=== PATIENT | male | born 1985 | race Caucasian/White ===

== ENCOUNTER 2016-07-05 15:40 | Emergency (ER) | payer SELFPAY ==
[2016-07-05] MEDS ORDERED: Fluorescein Opthalmic Strip ONE (16:08)
[2016-07-05] MEDS ORDERED: Tetracaine HCl 0.5% Ophth Soln 2 ML Bottle ONE (16:09)
--- NOTE | 2016-07-05 17:05 | ERRECORD ---
[facility]Y RECORD HPI EYE COMPLAINT (Sat Jul 06, 2016 00:50 JOHE) CHIEF COMPLAINT: Patient presents for evaluation of injury, to the right eye, Patient presents for evaluation of pain, to the right eye, Patient presents for evaluation of redness, to the right eye. HISTORIAN: History provided by patient, Pt. clearing away luly bushes, and got poked in the eye with one of the branches/thorns. Patient reports mild pain at the time of injury, which worsened after he irrigated his eye in the shower. Patient reports redness and tearing, with foreign body sensation. States vision normal. No other eye trauma, no grinding, hammering or welding. Did not get anything else in eyes, no contact lens or glasses use. MECHANISM OF INJURY: Foreign Body, foreign body suspected to be wooden. LOCATION: Symptoms are localized, most severe in the right eye, Radiation is not present. QUALITY: Pain is sharp in nature, described as stabbing. SEVERITY: Maximum severity of symptoms moderate, Currently symptoms are moderate. TIME COURSE: Sudden onset of symptoms, 4, hours prior to arrival, There has been no change in the patient's symptoms over time, are constant. ASSOCIATED WITH: No associated contact use, No associated crusting, No associated discharge, No associated facial pain, No associated fever, Associated with foreign body sensation, No associated glasses use, No associated headache, No associated nausea, Associated with tearing, No associated upper respiratory infection, No associated vomiting, No associated weakness, No associated blurred vision, No glaucoma signs or symptoms, Denies any other complaints. EXACERBATED BY: Patient's condition exacerbated by eye opening. RELIEVED BY: Nothing tried for relief. ROS (Sat Jul 06, 2016 00:53 JOHE) CONSTITUTIONAL: Historian denies chills, denies fatigue, denies fever. EYES: Historian reports eye pain, reports eye redness, denies eye discharge, denies itching, denies photophobia, reports tearing, denies vision changes. Patient does not wear glasses. ENT: Historian reports drooling, denies otalgia, denies rhinorrhea, denies sinus pain, denies sore throat. CARDIOVASCULAR: Historian denies chest pain, denies syncope, denies palpitations. RESPIRATORY: Historian denies cough, denies shortness of breath, denies wheezing. GI: Historian denies abdominal pain, denies nausea, denies &a-1R&a+25V*p+0X*w1235L*c202B*c15G*c2P*p-0X&a-25V&a+1R Name: Froy Cervantes : 1985 M31 MedRec: [id number] AcctNum: [id number] Prepared: Sat Jul 06, 2016 01:01 by Interface Page 1 of 4 pMD [facility] EMERGENCY RECORD vomiting. SKIN: Historian denies rash, denies skin changes, denies skin lesions. NEUROLOGIC: Historian denies dizziness, denies focal weakness, denies gait changes, denies seizures. HEMO/LYMPHATIC: Historian denies adenopathy. NOTES: All systems reviewed, negative except as described above. PAST MEDICAL HISTORY (16:01 [facility]) MEDICAL HISTORY: No past medical history, Flu vaccine not up to date, Tetanus immunization up to date, Pneumococcal vaccine not up to date, Notes: seasonal allergies. MALE SURGICAL HISTORY: Surgical history of appendectomy, Surgical history of orthopedic surgery, left forearm orif. PSYCHIATRIC HISTORY: Notes: NONE. SOCIAL HISTORY: Patient denies alcohol use, Patient denies drug use, Patient currently uses tobacco, smokes cigarettes, Patient smokes 1 pack per day. KNOWN ALLERGIES No Known Drug Allergies CURRENT MEDICATIONS (15:59 [facility]) None VITAL SIGNS VITAL SIGNS: BP: 139/73, Pulse: 107, Resp: 19, Temp: 98.8 (Oral), Pain: 6, O2 sat: 96, Time: 07/05/2016 15:59. (15:59 [facility]) Resp: 17, Pain: 0, Time: 07/05/2016 16:45. (16:45 BDON) PHYSICAL EXAM (Sat Jul 06, 2016 00:54 JOHE) CONSTITUTIONAL: Vital Signs Reviewed, Patient appears non toxic, Patient alert and oriented to person, place and time. HEAD: Head exam normal, Head exam included findings of head atraumatic, normocephalic, no raccoon eyes. EYES: Eye exam included findings of eyelids normal to inspection, Pupils equally round and reactive to light, Extraocular muscles intact, Fundoscopic exam normal, Eye exam included findings of anterior chamber clear, no nystagmus, Visual acuity:, Left eye: 20/30, Right eye: 20/40, PERRLA, EOMI, nondilated funduscopic exam unremarkable. No FBs seen in the right eye or lids, even with eyelid eversion. Fluorscein staining shows a corneal abrasion over the mid-cornea, no Wen sign. Globes bilaterally appear equal and symmetric, no proptosis or sunken globe. + right eye conjunctival injection. No periorbital swelling or erythema. ENT: ENT exam normal, Ear exam normal, external ear normal, tympanic membranes normal, no foreign body, no drainage, no bleeding, hearing normal, Nose exam normal, no nasal deformity, no bleeding from nares, no bleeding from hypopharynx, no foreign body visualized, no septal hematoma, no septal necrosis, No turbinate mucosa &a-1R&a+25V*p+0X*j0720I*c202B*c15G*c2P*p-0X&a-25V&a+1R Name: Froy Cervantes : 1985 M31 MedRec: [id number] AcctNum: [id number] Prepared: Sat Jul 06, 2016 01:01 by Interface Page 2 of 4 pMD [facility] EMERGENCY RECORD discharge, Pharynx exam normal, not injected, no swelling, symmetrical, Tonsil exam normal, not enlarged, no exudates, Mouth exam normal, mucous membranes moist, no drooling, no lesions, no lacerations, no tongue elevation, Sinus exam included findings of frontal sinuses normal, maxillary sinuses normal. NECK: Neck exam normal, Neck exam included findings of normal range of motion, Trachea midline, no cervical adenopathy. RESPIRATORY CHEST: Respiratory and chest exam normal, Respiratory exam included findings of no respiratory distress, Breath sounds clear, No wheezing, No rales, No rhonchi, Breath sounds not absent, Breath sounds not diminished. CARDIOVASCULAR: Cardiovascular assessment normal, Cardiovascular exam included findings of heart rate regular rate and rhythm, Heart sounds normal. NEURO: Neuro exam normal, [place] coma scale 15, Neuro exam findings include patient oriented to person, place and time, Speech normal, Gait normal. SKIN: Skin exam normal, Skin exam included findings of skin warm, dry, and normal in color, no rash. MEDICATION ADMINISTRATION SUMMARY Drug Name: Ful-Vida, Dose Ordered: 1 dustin, Route: Eye Right, Status: Given, Time: 16:25 07/05/2016, Drug Name: proparacaine, Dose Ordered: 1 Drps, Route: Eye Right, Status: Given, Time: 16:14 07/05/2016, Detailed record available in Medication Service section. DOCTOR NOTES (Sat Jul 06, 2016 00:57 JOHE) TEXT: Note - Chart completed after patient discharge. Discussed treatment, need for close outpatient f/u, and warning signs for immediate return to ED. Discussed with patient that he has evidence of corneal abrasion without signs of globe injury. However, offered CT scan if patient feels thorn penetrated the eye. Patient says he does not think so, and refuses imaging at this time. Discussed treatment for corneal abrasion, need for ophthalmology f/u tomorrow if not improved significantly, and discussed warning signs for when to return to ED. PROBLEM LIST No recorded problems DIAGNOSIS (16:32 JOHE) FINAL: PRIMARY: corneal abrasion of right eye. PRESCRIPTION erythromycin ophthalmic: OINTMENT (GRAM) : 5 mg/gram (0.5 %) : OPHTHALMIC : Quantity: 0.5 Unit: inch Route: OPHTHALMIC Schedule: 4 times a day Dispense: 1 Unit: Tube May substitute. Refills: No Refills . (16:33 JOHE) &a-1R&a+25V*p+0X*b5944S*c202B*c15G*c2P*p-0X&a-25V&a+1R Name: Froy Cervantes : 1985 M31 MedRec: [id number] AcctNum: [id number] Prepared: Sat Jul 06, 2016 01:01 by Interface Page 3 of 4 pMD [facility] EMERGENCY RECORD NOTES: Apply a small amount to the right eye 4 times daily or as directed by ophthalmology. No Refills. (16:33 JOHE) Acular: DROPS : 0.5 % : OPHTHALMIC : Quantity: 1 Unit: Drps Route: OPHTHALMIC Schedule: every 6 hours PRN Dispense: 1 May substitute. Refills: No Refills . (16:35 JOHE) NOTES: ketorolac ophthalmic 0.5% No Refills. (16:35 JOHE) acetaminophen-codeine: CAPSULE : 325 mg-60 mg : ORAL : Quantity: 1 Unit: tab(s) Route: ORAL Schedule: Dispense: 15 Unit: tab(s) May substitute. Refills: No Refills . (16:35 JOHE) NOTES: No Refills. (16:35 JOHE) DISPOSITION PATIENT: Disposition Type: Discharge, Disposition: *Discharge Home from Observation Unit, Condition: Good. (16:32 JOHE) Patient left the department. (16:56 BDON) Disposition: *Discharge Home. (16:58 BDON) Apul: KRISTIE=SHIRLEY Tejada, Caitie MORRIS=MD Claudia, Jaycob [facility]=SHIRLEY Rg, Pari &a-1R&a+25V*p+0X*d7664P*c202B*c15G*c2P*p-0X&a-25V&a+1R Name: Froy Cervantes : 1985 M31 MedRec: [id number] AcctNum: [id number] Prepared: Dheeraj Jul 06, 2016 01:01 by Interface Page 4 of 4 pMD MTDD
--- NOTE | 2016-07-05 17:09 | PICIS ---
[facility] EMERGENCY RECORD TRIAGE (15:59 [facility]) TRIAGE NOTES: Cleaning a fence and possible foreign body (a briar / thorn vein) hit eye. 4 hours ago. (15:59 [facility]) PATIENT: NAME: Froy Cervantes, AGE: 31, GENDER: male, : Fri1985, TIME OF GREET: FriJul 05, 2016 15:40, PREFERRED LANGUAGE: Slovenian, ETHNICITY: Not or , ECODE BILLING MAP: [facility], SSN: [id number], Zip Code: [address], KG WEIGHT: 107.50, PHONE: , , , PERSON ID: [id number], PCP: Bg Allen /Kim. (15:59 [facility]) COMPLAINT: RIGHT EYE IRRITATION. (15:59 [facility]) ADMISSION: URGENCY: 4 Non Urgent, ADMISSION SOURCE: Home, TRANSPORT: Walk-in, BED: TRIAGE. (15:59 [facility]) ASSESSMENT: Assessment: Possible foreign body right eye from thorn campos which hit him, Symptoms began 4 hours ago. (16:01 [facility]) TREATMENTS IN PROGRESS: Treatments given Prehospital: none. (16:01 [facility]) PROVIDERS: TRIAGE NURSE: Pari Rg RN. (15:59 [facility]) VITAL SIGNS: BP 139/73, Pulse 107, Resp 19, Temp 98.8, (Oral), Pain 6, O2 Sat 96, Time 07/05/2016 15:59. (15:59 [facility]) PREVIOUS VISIT ALLERGIES: No Known Drug Allergies. (15:59 [facility]) No Known Drug Allergies. (16:01 [facility]) KNOWN ALLERGIES No Known Drug Allergies CURRENT MEDICATIONS (15:59 [facility]) None VITAL SIGNS VITAL SIGNS: BP: 139/73, Pulse: 107, Resp: 19, Temp: 98.8 (Oral), Pain: 6, O2 sat: 96, Time: 07/05/2016 15:59. (15:59 [facility]) Resp: 17, Pain: 0, Time: 07/05/2016 16:45. (16:45 BDON) NURSING ASSESSMENT: EYE (16:00 BDON) CONSTITUTIONAL: Patient arrives ambulatory, Gait steady, History obtained from patient, Patient appears, Patient cooperative, Patient alert, Oriented to person, place and time, Skin warm, Skin dry, Skin normal in color, Patient is well-groomed. PAIN: Right eye. EYES: Conjunctiva, with hemorrhage on the right, Visual acuity performed, Left eye: 20/30, Right eye: 20/90, Both eyes: 20/25. SAFETY: Cart/Stretcher in lowest position, Family at bedside, Hospital ID band on, Patient in view of the nursing station. NURSING PROCEDURE: DISCHARGE NOTE (16:45 BDON) DISCHARGE: Patient discharged to home, ambulating without assistance, Summary of Care printed/ provided, Patient requested and was provided an electronic copy of Discharge Instructions, Transition &a-1R&a+25V*p+0X*c0713F*c202B*c15G*c2P*p-0X&a-25V&a+1R Name: Froy Cervantes : 1985 M31 MedRec: [id number] AcctNum: [id number] Prepared: Sat Jul 06, 2016 01:07 by Interface Page 1 of 6 pMD [facility] EMERGENCY RECORD record given to patient, Discharge instructions given to patient, Simple or moderate discharge teaching performed, Prescriptions given and instructions on side effects given, Medication reconciliation form given, Above person(s) verbalized understanding of discharge instructions and follow-up care, Patient treated and evaluated by physician. VITAL SIGNS: Resp: 17, Pain: 0. MEDICATION ADMINISTRATION SUMMARY Drug Name: Ful-Vida, Dose Ordered: 1 dustin, Route: Eye Right, Status: Given, Time: 16:25 07/05/2016, Drug Name: proparacaine, Dose Ordered: 1 Drps, Route: Eye Right, Status: Given, Time: 16:14 07/05/2016, Detailed record available in Medication Service section. MEDICATION SERVICE Ful-Vida: Order: Ful-Vida (fluorescein sodium) - Dose: 1 dustin : Eye Right Schedule: Now Ordered by: Jaycob Taylor MD Entered by: Jaycob Taylor MD FriJul 05, 2016 16:03 Documented as given by: Caitie Tejada RN FriJul 05, 2016 16:25 Patient, Medication, Dose, Route and Time verified prior to administration. Site: Medication administered on the right side, Dr. Taylor applied. proparacaine: Order: proparacaine (proparacaine HCl) - Dose: 1 Drps : Eye Right Schedule: Now Ordered by: Jaycob Taylor MD Entered by: Jaycob Taylor MD FriJul 05, 2016 16:03 Documented as given by: Caitie Tejada RN FriJul 05, 2016 16:14 Patient, Medication, Dose, Route and Time verified prior to administration. Site: Medication administered on the right side, Correct patient, time, route, dose and medication confirmed prior to administration, Patient advised of actions and side-effects prior to administration, Allergies confirmed and medications reviewed prior to administration, Advised not to ambulate without assistance, Patient in position of comfort, Cart in lowest position, Family at bedside. HPI EYE COMPLAINT (Sat Jul 06, 2016 00:50 JOHE) CHIEF COMPLAINT: Patient presents for evaluation of injury, to the right eye, Patient presents for evaluation of pain, to the right eye, Patient presents for evaluation of redness, to the right eye. HISTORIAN: History provided by patient, Pt. clearing away luly bushes, and got poked in the eye with one of the branches/thorns. Patient reports mild pain at the time of injury, which worsened after he irrigated his eye in the shower. Patient &a-1R&a+25V*p+0X*t0160P*c202B*c15G*c2P*p-0X&a-25V&a+1R Name: Froy Cervantes : 1985 M31 MedRec: [id number] AcctNum: [id number] Prepared: Sat Jul 06, 2016 01:07 by Interface Page 2 of 6 pMD [facility] EMERGENCY RECORD reports redness and tearing, with foreign body sensation. States vision normal. No other eye trauma, no grinding, hammering or welding. Did not get anything else in eyes, no contact lens or glasses use. MECHANISM OF INJURY: Foreign Body, foreign body suspected to be wooden. LOCATION: Symptoms are localized, most severe in the right eye, Radiation is not present. QUALITY: Pain is sharp in nature, described as stabbing. SEVERITY: Maximum severity of symptoms moderate, Currently symptoms are moderate. TIME COURSE: Sudden onset of symptoms, 4, hours prior to arrival, There has been no change in the patient's symptoms over time, are constant. ASSOCIATED WITH: No associated contact use, No associated crusting, No associated discharge, No associated facial pain, No associated fever, Associated with foreign body sensation, No associated glasses use, No associated headache, No associated nausea, Associated with tearing, No associated upper respiratory infection, No associated vomiting, No associated weakness, No associated blurred vision, No glaucoma signs or symptoms, Denies any other complaints. EXACERBATED BY: Patient's condition exacerbated by eye opening. RELIEVED BY: Nothing tried for relief. ROS (Sat Jul 06, 2016 00:53 JOHE) CONSTITUTIONAL: Historian denies chills, denies fatigue, denies fever. EYES: Historian reports eye pain, reports eye redness, denies eye discharge, denies itching, denies photophobia, reports tearing, denies vision changes. Patient does not wear glasses. ENT: Historian reports drooling, denies otalgia, denies rhinorrhea, denies sinus pain, denies sore throat. CARDIOVASCULAR: Historian denies chest pain, denies syncope, denies palpitations. RESPIRATORY: Historian denies cough, denies shortness of breath, denies wheezing. GI: Historian denies abdominal pain, denies nausea, denies vomiting. SKIN: Historian denies rash, denies skin changes, denies skin lesions. NEUROLOGIC: Historian denies dizziness, denies focal weakness, denies gait changes, denies seizures. HEMO/LYMPHATIC: Historian denies adenopathy. NOTES: All systems reviewed, negative except as described above. PAST MEDICAL HISTORY (16:01 [facility]) &a-1R&a+25V*p+0X*w0570C*c202B*c15G*c2P*p-0X&a-25V&a+1R Name: Froy Cervantes : 1985 M31 MedRec: [id number] AcctNum: [id number] Prepared: Sat Jul 06, 2016 01:07 by Interface Page 3 of 6 pMD [facility] EMERGENCY RECORD MEDICAL HISTORY: No past medical history, Flu vaccine not up to date, Tetanus immunization up to date, Pneumococcal vaccine not up to date, Notes: seasonal allergies. MALE SURGICAL HISTORY: Surgical history of appendectomy, Surgical history of orthopedic surgery, left forearm orif. PSYCHIATRIC HISTORY: Notes: NONE. SOCIAL HISTORY: Patient denies alcohol use, Patient denies drug use, Patient currently uses tobacco, smokes cigarettes, Patient smokes 1 pack per day. PHYSICAL EXAM (Sat Jul 06, 2016 00:54 JOHE) CONSTITUTIONAL: Vital Signs Reviewed, Patient appears non toxic, Patient alert and oriented to person, place and time. HEAD: Head exam normal, Head exam included findings of head atraumatic, normocephalic, no raccoon eyes. EYES: Eye exam included findings of eyelids normal to inspection, Pupils equally round and reactive to light, Extraocular muscles intact, Fundoscopic exam normal, Eye exam included findings of anterior chamber clear, no nystagmus, Visual acuity:, Left eye: 20/30, Right eye: 20/40, PERRLA, EOMI, nondilated funduscopic exam unremarkable. No FBs seen in the right eye or lids, even with eyelid eversion. Fluorscein staining shows a corneal abrasion over the mid-cornea, no Wen sign. Globes bilaterally appear equal and symmetric, no proptosis or sunken globe. + right eye conjunctival injection. No periorbital swelling or erythema. ENT: ENT exam normal, Ear exam normal, external ear normal, tympanic membranes normal, no foreign body, no drainage, no bleeding, hearing normal, Nose exam normal, no nasal deformity, no bleeding from nares, no bleeding from hypopharynx, no foreign body visualized, no septal hematoma, no septal necrosis, No turbinate mucosa discharge, Pharynx exam normal, not injected, no swelling, symmetrical, Tonsil exam normal, not enlarged, no exudates, Mouth exam normal, mucous membranes moist, no drooling, no lesions, no lacerations, no tongue elevation, Sinus exam included findings of frontal sinuses normal, maxillary sinuses normal. NECK: Neck exam normal, Neck exam included findings of normal range of motion, Trachea midline, no cervical adenopathy. RESPIRATORY CHEST: Respiratory and chest exam normal, Respiratory exam included findings of no respiratory distress, Breath sounds clear, No wheezing, No rales, No rhonchi, Breath sounds not absent, Breath sounds not diminished. CARDIOVASCULAR: Cardiovascular assessment normal, Cardiovascular exam included findings of heart rate regular rate and rhythm, Heart sounds normal. NEURO: Neuro exam normal, [place] coma scale 15, Neuro exam findings include patient oriented to person, place and time, Speech normal, Gait normal. SKIN: Skin exam normal, Skin exam included findings of skin warm, dry, and normal in color, no rash. &a-1R&a+25V*p+0X*v5660U*c202B*c15G*c2P*p-0X&a-25V&a+1R Name: Froy Cervantes : 1985 M31 MedRec: [id number] AcctNum: [id number] Prepared: Sat Jul 06, 2016 01:07 by Interface Page 4 of 6 pMD [facility] EMERGENCY RECORD EVENTS TRANSFER: Triage to Emergency Triage. (FriJul 05, 2016 15:59 [facility]) Emergency Triage to Emergency Room -05. (16:05 BDON) Removed from Emergency Emergency Room -05. (16:56 BDON) DOCTOR NOTES (Sat Jul 06, 2016 00:57 JOHE) TEXT: Note - Chart completed after patient discharge. Discussed treatment, need for close outpatient f/u, and warning signs for immediate return to ED. Discussed with patient that he has evidence of corneal abrasion without signs of globe injury. However, offered CT scan if patient feels thorn penetrated the eye. Patient says he does not think so, and refuses imaging at this time. Discussed treatment for corneal abrasion, need for ophthalmology f/u tomorrow if not improved significantly, and discussed warning signs for when to return to ED. PROBLEM LIST No recorded problems DIAGNOSIS (16:32 JOHE) FINAL: PRIMARY: corneal abrasion of right eye. DISPOSITION PATIENT: Disposition Type: Discharge, Disposition: *Discharge Home from Observation Unit, Condition: Good. (16:32 JOHE) Patient left the department. (16:56 BDON) Disposition: *Discharge Home. (16:58 BDON) INSTRUCTION (16:36 JOHE) DISCHARGE: CORNEAL ABRASION. FOLLOWUP: [facility], /[facility], [address] [place] [address], , [place], Ophthalmology, [address] [place] [place] [address], [phone], Follow up with Specialist in 1 day. PRESCRIPTION erythromycin ophthalmic: OINTMENT (GRAM) : 5 mg/gram (0.5 %) : OPHTHALMIC : Quantity: 0.5 Unit: inch Route: OPHTHALMIC Schedule: 4 times a day Dispense: 1 Unit: Tube May substitute. Refills: No Refills . (16:33 JOHE) NOTES: Apply a small amount to the right eye 4 times daily or as directed by ophthalmology. No Refills. (16:33 JOHE) Acular: DROPS : 0.5 % : OPHTHALMIC : Quantity: 1 Unit: Drps Route: OPHTHALMIC Schedule: every 6 hours PRN Dispense: 1 May substitute. Refills: No Refills . (16:35 E) NOTES: ketorolac ophthalmic 0.5% No Refills. (16:35 JOHE) &a-1R&a+25V*p+0X*u7202J*c202B*c15G*c2P*p-0X&a-25V&a+1R Name: Froy Cervantes : 1985 M31 MedRec: [id number] AcctNum: [id number] Prepared: Sat Jul 06, 2016 01:07 by Interface Page 5 of 6 pMD [facility] EMERGENCY RECORD acetaminophen-codeine: CAPSULE : 325 mg-60 mg : ORAL : Quantity: 1 Unit: tab(s) Route: ORAL Schedule: Dispense: 15 Unit: tab(s) May substitute. Refills: No Refills . (16:35 JOHE) NOTES: No Refills. (16:35 JOHE) IMAGING (16:55 BDON) *DISCHARGE INSTRUCTIONS RECEIPT: Image captured from scanner. *SUPPLY CHARGE SHEET: Image captured from scanner. ADMIN DIGITAL SIGNATURE: SHIRLEY Tejada, Caitie. (16:55 BDON) MD Taylor John. (Sat Jul 06, 2016 00:58 JOHE) Paul: KRISTIE=SHIRLEY Tejada Bettye JOHE=MD Taylor John [facility]=SHIRLEY Rg, Pari &a-1R&a+25V*p+0X*l7822S*c202B*c15G*c2P*p-0X&a-25V&a+1R Name: Froy Cervantes : 1985 M31 MedRec: [id number] AcctNum: [id number] Prepared: Dheeraj Jul 06, 2016 01:07 by Interface Page 6 of 6 pMD MTDD
== END 2016-07-05 16:45 | disposition home or self-care (01) ==
LOC: NAV ERS 15:40
DX: S05.01XA Injury of conjunctiva and corneal abrasion without foreign body, right eye, initial encounter (principal); F17.210 Nicotine dependence, cigarettes, uncomplicated; X58.XXXA Exposure to other specified factors, initial encounter
CPT/HCPCS: 99283

== ENCOUNTER 2016-07-25 08:23 | Emergency (ER) | payer SELFPAY ==
--- NOTE | 2016-07-25 09:15 | ERRECORD ---
[facility] EMERGENCY RECORD HPI FLU-LIKE SYNDROME (09:02 [facility]) CHIEF COMPLAINT: Patient presents for evaluation of body aches, Patient presents for evaluation of fatigue, Patient presents for evaluation of fever, Measured maximum temperature 103-103.9 degrees, Patient presents for evaluation of upper respiratory infection, Patient presents for evaluation of Pt with 3-4 days of cough, congestion, fevers and body aches. Pt with all three kids with positive flu swabs in the past week. with URI as well. Taking tylenol but nothing else. Pt most bothered by the persistent cough. HISTORIAN: History provided by patient. LOCATION: Symptoms are generalized. QUALITY: Pain is dull in nature, described as aching. TIME COURSE: Gradual onset of symptoms, Symptoms are worsening, are constant. ASSOCIATED WITH: No associated abdominal pain, No associated chest pain, Associated with cough, productive, Associated with diarrhea, Number of times: 'few', Associated with headache, intermittent, No associated rash, No associated shortness of breath, No associated urinary tract infection signs or symptoms. EXACERBATED BY: Patient's condition exacerbated by nothing. RELIEVED BY: Patient's condition relieved by over the counter medications, tylenol. ROS (09:03 [facility]) CONSTITUTIONAL: Historian reports chills, reports fever. EYES: Historian denies eye pain, denies eye redness, denies eye discharge. ENT: Historian reports rhinorrhea, denies sore throat. CARDIOVASCULAR: Historian denies chest pain. RESPIRATORY: Historian reports cough, denies shortness of breath, reports sputum. clear. GI: Historian denies abdominal pain, reports diarrhea, denies stool changes. Postussive emesis. GENITOURINARY MALE: Historian denies dysuria, denies hematuria. MUSCULOSKELETAL: Historian reports arthralgias, reports myalgias. NEUROLOGIC: Historian denies dizziness, reports headache. PAST MEDICAL HISTORY MEDICAL HISTORY: No past medical history, Flu vaccine not up to date, Tetanus immunization up to date, Pneumococcal vaccine not up to date, Notes: seasonal allergies. (08:31 BDON) MALE SURGICAL HISTORY: Surgical history of appendectomy, Surgical history of orthopedic surgery, left forearm orif. (08:31 BDON) PSYCHIATRIC HISTORY: Notes: NONE. (08:31 BDON) SOCIAL HISTORY: Patient denies alcohol use, Patient denies &a-1R&a+25V*p+0X*r1736W*c202B*c15G*c2P*p-0X&a-25V&a+1R Name: Froy Cervantes : 1985 M31 MedRec: [id number] AcctNum: [id number] Prepared: Harper Jul 25, 2016 09:16 by Interface Page 1 of 3 pMD [facility] EMERGENCY RECORD drug use, Patient currently uses tobacco, smokes cigarettes, Patient smokes 1 pack per day. (08:31 BDON) NOTES: Nursing records reviewed, Agree with nursing records. (09:04 JLOY) KNOWN ALLERGIES No Known Drug Allergies CURRENT MEDICATIONS (08:29 BDON) None VITAL SIGNS (08:27 BDON) VITAL SIGNS: BP: 132/84, Pulse: 100, Resp: 19, Temp: 99.0 (Oral), Pain: 8, O2 sat: 94, Time: 07/25/2016 08:27. PHYSICAL EXAM (09:04 JLOY) CONSTITUTIONAL: Vital signs reviewed, Patient appears non toxic, Patient alert and oriented to person, place and time. EYES: Eye exam included findings of eyelids normal to inspection, Pupils equally round and reactive to light, Conjunctiva normal. ENT: Pharynx exam normal, Uvula exam normal, Tonsil exam normal, Mouth exam included findings of, mucous membranes dry. NECK: Neck exam included findings of normal range of motion, Trachea midline, no cervical adenopathy. RESPIRATORY CHEST: Respiratory exam included findings of no respiratory distress, Breath sounds clear, No wheezing, No rales, No rhonchi, Chest exam included findings of chest movement symmetrical. CARDIOVASCULAR: Cardiovascular exam included findings of heart rate regular rate and rhythm, Heart sounds normal. ABDOMEN MALE: Abdominal exam included findings of abdomen nontender, Bowel sounds normal. UPPER EXTREMITY: Upper extremity exam included findings of inspection normal. LOWER EXTREMITY: Lower extremity exam included findings of inspection normal. NEURO: Xin coma scale 15, Neuro exam findings include patient oriented to person, place and time, Speech normal. SKIN: Skin exam included findings of skin warm, dry, and normal in color, no rash. PSYCHIATRIC: Normal affect. DOCTOR NOTES (09:05 JLOY) TEXT: Discussed the likelihood of Flu even with a negative test as he has multiple confirmed sick contacts. He is outside the range when Tamiflu might benefit so recommended symptom control. PROBLEM LIST No recorded problems DIAGNOSIS (08:59 JLOY) &a-1R&a+25V*p+0X*j7887V*c202B*c15G*c2P*p-0X&a-25V&a+1R Name: Froy Cervantes : 1985 M31 MedRec: [id number] AcctNum: [id number] Prepared: FriJul 25, 2016 09:16 by Interface Page 2 of 3 pMD [facility] EMERGENCY RECORD FINAL: PRIMARY: Viral infection. PRESCRIPTION (08:59 JL) ibuprofen: TABLET : 800 mg : ORAL : Quantity: 1 Unit: tab(s) Route: ORAL Schedule: every 8 hours PRN Dispense: 30 May substitute. Refills: No Refills . NOTES: No Refills. DISPOSITION PATIENT: Disposition Type: Discharge, Disposition: *Discharge Home. (08:59 JLOY) Patient left the department. (09:10 BDON) Paul: BDON=SHIRLEY Tejada, Caitie BURTON=MD Clive, Ricardo &a-1R&a+25V*p+0X*t5327H*c202B*c15G*c2P*p-0X&a-25V&a+1R Name: Froy Cervantes : 1985 1 MedRec: [id number] AcctNum: [id number] Prepared: FriJul 25, 2016 09:16 by Interface Page 3 of 3 pMD MTDD
--- NOTE | 2016-07-25 09:15 | PICIS ---
[facility] EMERGENCY RECORD TRIAGE (FriJul 25, 2016 08:29 BDON) TRIAGE NOTES: Cough, congestion, upset stomach and generalized body aches. Family have been diagnosed with flu. (FriJul 25, 2016 08:29 BDON) PATIENT: NAME: Froy Cervantes, AGE: 31, GENDER: male, : Fri1985, TIME OF GREET: FriJul 25, 2016 08:24, PREFERRED LANGUAGE: Greenlandic, ETHNICITY: Not or , ECODE BILLING MAP: [facility] ER, SSN: [id number], Zip Code: [address], KG WEIGHT: 62.14, PHONE: , , , PERSON ID: [id number]. (FriJul 25, 2016 08:29 BDON) COMPLAINT: FEVER,COUGH. (FriJul 25, 2016 08:29 BDON) ADMISSION: URGENCY: 4 Non Urgent, ADMISSION SOURCE: Home, TRANSPORT: Walk-in, BED: TRIAGE. (FriJul 25, 2016 08:29 BDON) ASSESSMENT: Assessment: Generalize body aches, cough and congestion., Symptoms began 3 days ago. (08:31 BDON) TREATMENTS IN PROGRESS: Treatments given Prehospital: tylenol 0200. (08:31 BDON) PROVIDERS: TRIAGE NURSE: Caitie Tejada RN. (FriJul 25, 2016 08:29 BDON) VITAL SIGNS: BP 132/84, Pulse 100, Resp 19, Temp 99.0, (Oral), Pain 8, O2 Sat 94, Time 07/25/2016 08:27. (08:27 BDON) PREVIOUS VISIT ALLERGIES: No Known Drug Allergies. (FriJul 25, 2016 08:29 BDON) No Known Drug Allergies. (08:31 BDON) KNOWN ALLERGIES No Known Drug Allergies CURRENT MEDICATIONS (08:29 BDON) None VITAL SIGNS (08:27 BDON) VITAL SIGNS: BP: 132/84, Pulse: 100, Resp: 19, Temp: 99.0 (Oral), Pain: 8, O2 sat: 94, Time: 07/25/2016 08:27. NURSING ASSESSMENT: ENT (08:38 BDON) CONSTITUTIONAL: Patient arrives ambulatory, Gait steady, History obtained from patient, Patient appears, generally ill, Patient cooperative, Patient alert, Oriented to person, place and time, Skin warm, Skin dry, Skin normal in color. PAIN: aching pain, generalized. ENT: Congestion, bilaterally. RESPIRATORY/CHEST: Respiratory assessment findings include respiratory effort easy, Respirations regular, Conversing normally, Neck and chest exam findings include trachea midline, Associated with cough. SAFETY: Cart/Stretcher in lowest position, Hospital ID band on, Patient in view of the nursing station. &a-1R&a+25V*p+0X*q2755W*c202B*c15G*c2P*p-0X&a-25V&a+1R Name: Froy Cervantes : 1985 M31 MedRec: [id number] AcctNum: [id number] Prepared: FriJul 25, 2016 09:16 by Interface Page 1 of 5 pMD [facility] EMERGENCY RECORD NURSING PROCEDURE: DISCHARGE NOTE (09:07 BDON) DISCHARGE: Patient discharged to home, ambulating without assistance, Summary of Care printed/ provided, Patient requested and was provided an electronic copy of Discharge Instructions, Transition record given to patient, Discharge instructions given to patient, Simple or moderate discharge teaching performed, Prescriptions given and instructions on side effects given, Medication reconciliation form given, Above person(s) verbalized understanding of discharge instructions and follow-up care, Patient treated and evaluated by physician. NURSING PROCEDURE: ENT (08:29 [facility]) PATIENT IDENTIFIER: Patient actively involved in identification process, Patient's identity verified by patient stating name, Patient's identity verified by patient stating date, Patient's identity verified by hospital ID bracelet. ENT: Nasal swab collected, labeled in the presence of the patient and sent to lab for testing of, influenza A, influenza B, collected by Leroy DEAN RN. SAFETY: Side rails up, Cart/Stretcher in lowest position, Call light within reach, Hospital ID band on. ORDER DETAILS Order Name: Influenza A&B Ag Screen, Status: Active, Time: 08:29 07/25/2016, User: [facility], - Ordered for: MD Clive, Ricardo, - Entered by: SHIRLEY Dean Linda - FriJul 25, 2016 08:29, - Quantity: 1, Order Name: Influenza A&B Panel by NAAT, Status: Canceled, Time: 08:29 07/25/2016, User: KRISTIE, - Ordered for: MD Clive, Ricardo, - Entered by: SHIRLEY Tejada, Caitie - [facility] Jul 25, 2016 08:29, - Quantity: 1. HPI FLU-LIKE SYNDROME (09:02 [facility]) CHIEF COMPLAINT: Patient presents for evaluation of body aches, Patient presents for evaluation of fatigue, Patient presents for evaluation of fever, Measured maximum temperature 103-103.9 degrees, Patient presents for evaluation of upper respiratory infection, Patient presents for evaluation of Pt with 3-4 days of cough, congestion, fevers and body aches. Pt with all three kids with positive flu swabs in the past week. with URI as well. Taking tylenol but nothing else. Pt most bothered by the persistent cough. HISTORIAN: History provided by patient. LOCATION: Symptoms are generalized. QUALITY: Pain is dull in nature, described as aching. TIME COURSE: Gradual onset of symptoms, Symptoms are worsening, are constant. ASSOCIATED WITH: No &a-1R&a+25V*p+0X*x3413P*c202B*c15G*c2P*p-0X&a-25V&a+1R Name: Froy Cervantes : 1985 M31 MedRec: [id number] AcctNum: [id number] Prepared: FriJul 25, 2016 09:16 by Interface Page 2 of 5 pMD [facility] EMERGENCY RECORD associated abdominal pain, No associated chest pain, Associated with cough, productive, Associated with diarrhea, Number of times: 'few', Associated with headache, intermittent, No associated rash, No associated shortness of breath, No associated urinary tract infection signs or symptoms. EXACERBATED BY: Patient's condition exacerbated by nothing. RELIEVED BY: Patient's condition relieved by over the counter medications, tylenol. ROS (09:03 [facility]) CONSTITUTIONAL: Historian reports chills, reports fever. EYES: Historian denies eye pain, denies eye redness, denies eye discharge. ENT: Historian reports rhinorrhea, denies sore throat. CARDIOVASCULAR: Historian denies chest pain. RESPIRATORY: Historian reports cough, denies shortness of breath, reports sputum. clear. GI: Historian denies abdominal pain, reports diarrhea, denies stool changes. Postussive emesis. GENITOURINARY MALE: Historian denies dysuria, denies hematuria. MUSCULOSKELETAL: Historian reports arthralgias, reports myalgias. NEUROLOGIC: Historian denies dizziness, reports headache. PAST MEDICAL HISTORY MEDICAL HISTORY: No past medical history, Flu vaccine not up to date, Tetanus immunization up to date, Pneumococcal vaccine not up to date, Notes: seasonal allergies. (08:31 BDON) MALE SURGICAL HISTORY: Surgical history of appendectomy, Surgical history of orthopedic surgery, left forearm orif. (08:31 BDON) PSYCHIATRIC HISTORY: Notes: NONE. (08:31 BDON) SOCIAL HISTORY: Patient denies alcohol use, Patient denies drug use, Patient currently uses tobacco, smokes cigarettes, Patient smokes 1 pack per day. (08:31 BDON) NOTES: Nursing records reviewed, Agree with nursing records. (09:04 JLOY) PHYSICAL EXAM (09:04 JLOY) CONSTITUTIONAL: Vital signs reviewed, Patient appears non toxic, Patient alert and oriented to person, place and time. EYES: Eye exam included findings of eyelids normal to inspection, Pupils equally round and reactive to light, Conjunctiva normal. ENT: Pharynx exam normal, Uvula exam normal, Tonsil exam normal, Mouth exam included findings of, mucous membranes dry. NECK: Neck exam included findings of normal range of motion, Trachea midline, no cervical adenopathy. RESPIRATORY CHEST: Respiratory exam included findings of no &a-1R&a+25V*p+0X*a4693Z*c202B*c15G*c2P*p-0X&a-25V&a+1R Name: Froy Cervantes : 1985 M31 MedRec: [id number] AcctNum: [id number] Prepared: FriJul 25, 2016 09:16 by Interface Page 3 of 5 pMD [facility] EMERGENCY RECORD respiratory distress, Breath sounds clear, No wheezing, No rales, No rhonchi, Chest exam included findings of chest movement symmetrical. CARDIOVASCULAR: Cardiovascular exam included findings of heart rate regular rate and rhythm, Heart sounds normal. ABDOMEN MALE: Abdominal exam included findings of abdomen nontender, Bowel sounds normal. UPPER EXTREMITY: Upper extremity exam included findings of inspection normal. LOWER EXTREMITY: Lower extremity exam included findings of inspection normal. NEURO: Xin coma scale 15, Neuro exam findings include patient oriented to person, place and time, Speech normal. SKIN: Skin exam included findings of skin warm, dry, and normal in color, no rash. PSYCHIATRIC: Normal affect. EVENTS TRANSFER: Triage to Emergency Triage. (FriJul 25, 2016 08:29 BDON) Emergency Triage to Emergency Room -03. (08:30 BDON) Removed from Emergency Emergency Room -03. (09:10 BDON) DOCTOR NOTES (09:05 JLOY) TEXT: Discussed the likelihood of Flu even with a negative test as he has multiple confirmed sick contacts. He is outside the range when Tamiflu might benefit so recommended symptom control. PROBLEM LIST No recorded problems DIAGNOSIS (08:59 JLOY) FINAL: PRIMARY: Viral infection. DISPOSITION PATIENT: Disposition Type: Discharge, Disposition: *Discharge Home. (08:59 JLOY) Patient left the department. (09:10 BDON) INSTRUCTION (09:01 JLOY) DISCHARGE: INFLUENZA (ADULT). FOLLOWUP: Follow up with Primary Care Physician in 7-10 days. SPECIAL: Take Robitussin DM or Mucinex DM for the cough. PRESCRIPTION (08:59 JLOY) ibuprofen: TABLET : 800 mg : ORAL : Quantity: 1 Unit: tab(s) Route: ORAL Schedule: every 8 hours PRN Dispense: 30 May substitute. Refills: No Refills . NOTES: No Refills. IMAGING &a-1R&a+25V*p+0X*q2327R*c202B*c15G*c2P*p-0X&a-25V&a+1R Name: Froy Cervantes : 1985 M31 MedRec: [id number] AcctNum: [id number] Prepared: FriJul 25, 2016 09:16 by Interface Page 4 of 5 pMD [facility] EMERGENCY RECORD *DISCHARGE INSTRUCTIONS RECEIPT: Image captured from scanner. (09:09 BDON) *SUPPLY CHARGE SHEET: Image captured from scanner. (09:10 BDON) ADMIN DIGITAL SIGNATURE: SHIRLEY Dean, Eva. (08:30 ALYSSA) MD Duffy Joshua. (09:04 JOSEPHINE) MD Duffy Joshua. (09:06 JOSEPHINE) SHIRLEY Tejada Bettye. (09:09 KRISTIE) RESULTS (08:58 JL) MICROBIOLOGY: Influenza A&B Ag Screen: [id number] Collection DT: Harper Jul 25, 2016 08:35, See comment below , @ ER ROOM#: TRIAGE[TxData]:ER.BE Source: Nasopharyngeal swab Spec Desc: , Influenza A Antigen: NEGATIVE for the , presence of , INFLUENZA A Antigen , Influenza B Antigen: NEGATIVE for the , presence of , INFLUENZA B Antigen , The rapid Flu A&B test can distinguish between influenza A , Influenza A&B Ag Screen See comment below , and B viruses, but it does not differentiate influenza , Influenza A&B Ag Screen See comment below , subtypes. , Influenza A&B Ag Screen See comment below , Influenza A&B Ag Screen See comment below , Influenza A&B Ag Screen See comment below , Influenza A&B Ag Screen See comment below , characteristics of this device with human specimens infected , Influenza A&B Ag Screen See comment below , with the 2008 H1N1 influenza virus have not been , Influenza A&B Ag Screen See comment below , established. For example: this test cannot distinguish , Influenza A&B Ag Screen See comment below , influenza infections caused by novel H1N1 influenza A , Influenza A&B Ag Screen See comment below , viruses versus seasonal influenza A viruses. , Influenza A&B Ag Screen See comment below , , Influenza A&B Ag Screen See comment below , A negative result does not exclude influenza virus , Influenza A&B Ag Screen See comment below , infection; therefore, if more conclusive testing is desired, , Influenza A&B Ag Screen See comment below , follow up confirmatory testing is warranted., Influenza A&B Ag Screen See comment below . Paul: KRISTIE=SHIRLEY Tejada Bettye JLOY=MD Duffy Joshua LHAL=SHIRLEY Dean Linda &a-1R&a+25V*p+0X*p7427A*c202B*c15G*c2P*p-0X&a-25V&a+1R Name: Froy Cervantes : 1985 M31 MedRec: [id number] AcctNum: [id number] Prepared: Harper Jul 25, 2016 09:16 by Interface Page 5 of 5 pMD MTDD
== END 2016-07-25 09:07 | disposition home or self-care (01) ==
LOC: NAV ERS 08:23
DX: B34.9 Viral infection, unspecified (principal); F17.210 Nicotine dependence, cigarettes, uncomplicated
CPT/HCPCS: 99283

== ENCOUNTER 2016-12-17 11:37 | Emergency (ER) | payer SELFPAY ==
[2016-12-17] MEDS ORDERED: methylPREDNISolone Sod Succ/PF 125 MG/2 ML VIAL ONE (11:48)
[2016-12-17] MEDS ORDERED: diphenhydrAMINE HCl 50 MG/ML 1 ML VIAL ONE (11:48)
== END 2016-12-17 13:03 | disposition home or self-care (01) ==
LOC: NAV ERS 11:40
DX: T78.40XA Allergy, unspecified, initial encounter (principal); J45.909 Unspecified asthma, uncomplicated; F17.210 Nicotine dependence, cigarettes, uncomplicated
CPT/HCPCS: 96365; 96375; J1200; J2930

== ENCOUNTER 2017-01-02 14:10 | Emergency (ER) | payer SELFPAY ==
[2017-01-02] MEDS ORDERED: Dexamethasone 4 mg/ml Vial ONE (14:48)
== END 2017-01-02 14:50 | disposition home or self-care (01) ==
LOC: NAV ERS 14:10
DX: L23.9 Allergic contact dermatitis, unspecified cause (principal); I10 Essential (primary) hypertension; J45.909 Unspecified asthma, uncomplicated; F17.210 Nicotine dependence, cigarettes, uncomplicated
CPT/HCPCS: 96372; J1100

== ENCOUNTER 2017-01-10 14:55 | Emergency (ER) | payer SELFPAY | END 2017-01-10 15:27 | disposition home or self-care (01) | LOC: NAV ERS 14:55 | DX: R21 Rash and other nonspecific skin eruption (principal); I10 Essential (primary) hypertension; J45.909 Unspecified asthma, uncomplicated; F17.210 Nicotine dependence, cigarettes, uncomplicated | CPT/HCPCS: 99282 ==

== ENCOUNTER 2017-08-08 09:09 | Emergency (ER) | payer BC, SELFPAY ==
[2017-08-08] MEDS ORDERED: Lidocaine 1% 20 ML MDV ONE (09:58)
[2017-08-08] MEDS ORDERED: cefTRIAXone\\ROCEPHIN 1 GM VIAL ONE (09:58)
== END 2017-08-08 10:18 | disposition home or self-care (01) ==
LOC: NAV ERS 09:09
DX: J02.0 Streptococcal pharyngitis (principal); I10 Essential (primary) hypertension; J45.909 Unspecified asthma, uncomplicated; F17.210 Nicotine dependence, cigarettes, uncomplicated
CPT/HCPCS: 96372; J0696; J2001

== ENCOUNTER 2018-03-30 14:30 | Emergency (ER) | payer BC ==
[2018-03-30] MEDS ORDERED: Ondansetron ODT 4 MG TAB ONE (14:48)
== END 2018-03-30 16:05 | disposition home or self-care (01) ==
LOC: NAV ERS 14:30
DX: K52.9 Noninfective gastroenteritis and colitis, unspecified (principal); I10 Essential (primary) hypertension; J45.909 Unspecified asthma, uncomplicated; F17.210 Nicotine dependence, cigarettes, uncomplicated
CPT/HCPCS: 99283; Q0162

== ENCOUNTER 2020-04-01 12:14 | Emergency (ER) | payer BC, SELFPAY ==
[2020-04-01] MEDS ORDERED: Tetracaine HCl 0.5% Ophth Soln 2 ML Bottle ONE (12:18)
[2020-04-01] MEDS ORDERED: Fluorescein Opthalmic Strip ONE (12:18)
== END 2020-04-01 13:07 | disposition home or self-care (01) ==
LOC: NAV ERS 12:14
DX: S05.02XA Injury of conjunctiva and corneal abrasion without foreign body, left eye, initial encounter (principal); J45.909 Unspecified asthma, uncomplicated; F17.210 Nicotine dependence, cigarettes, uncomplicated; W28.XXXA Contact with powered lawn mower, initial encounter
CPT/HCPCS: 99283

== ENCOUNTER 2020-10-31 10:42 | Emergency (ER) | payer OTHER, SELFPAY ==
[2020-10-31] MEDS ORDERED: Lidocaine 1% (PF) 30 ML VIAL ONE (11:04)
[2020-10-31] MEDS ORDERED: Bacitracin 1 PK ONE (11:04)
== END 2020-10-31 12:00 | disposition home or self-care (01) ==
LOC: NAV ERS 10:42
DX: S61.212A Laceration without foreign body of right middle finger without damage to nail, initial encounter (principal); I10 Essential (primary) hypertension; F17.210 Nicotine dependence, cigarettes, uncomplicated; W26.8XXA Contact with other sharp object(s), not elsewhere classified, initial encounter
CPT/HCPCS: 12001; J2001

== ENCOUNTER 2021-01-09 11:46 | Emergency (ER) | payer OTHER, SELFPAY ==
[2021-01-09 23:53] LABS: SARS-CoV-2 PCR by NAA Not Detected (NotDetected)
== END 2021-01-09 12:49 | disposition home or self-care (01) ==
LOC: NAV ERS 11:46
DX: R05 Cough (principal); R09.89 Other specified symptoms and signs involving the circulatory and respiratory systems; R51.9 Headache, unspecified; Z20.822 Contact with and (suspected) exposure to COVID-19; I10 Essential (primary) hypertension; J45.909 Unspecified asthma, uncomplicated; F17.210 Nicotine dependence, cigarettes, uncomplicated
CPT/HCPCS: 99284; U0003; U0005

== ENCOUNTER 2021-02-27 07:49 | Emergency (ER) | payer SELFPAY ==
[2021-02-27 15:51] LABS: SARS-CoV-2 PCR by NAA Not Detected (NotDetected)
== END 2021-02-27 08:50 | disposition home or self-care (01) ==
LOC: NAV ERS 07:49
DX: J06.9 Acute upper respiratory infection, unspecified (principal); Z20.822 Contact with and (suspected) exposure to COVID-19; I10 Essential (primary) hypertension; J45.909 Unspecified asthma, uncomplicated; F17.210 Nicotine dependence, cigarettes, uncomplicated; Z79.899 Other long term (current) drug therapy
CPT/HCPCS: 99283; U0003; U0005

== ENCOUNTER 2021-07-04 08:45 | Emergency (ER) | payer OTHER, SELFPAY ==
[2021-07-05 09:32] LABS: SARS-CoV-2 PCR by NAA DETECTED (NotDetected)
== END 2021-07-04 09:52 | disposition home or self-care (01) ==
LOC: NAV ERS 08:45
DX: U07.1 COVID-19 (principal); I10 Essential (primary) hypertension; J45.909 Unspecified asthma, uncomplicated; F17.210 Nicotine dependence, cigarettes, uncomplicated
CPT/HCPCS: 99284; U0003; U0005

== ENCOUNTER 2025-05-21 14:19 | Emergency (ER) | payer SELFPAY ==
[2025-05-21] MEDS ORDERED: Bacitracin 1 PK ONE (14:50)
== END 2025-05-21 15:08 | disposition home or self-care (01) ==
LOC: NAV ERS 14:19
DX: S68.124A Partial traumatic metacarpophalangeal amputation of right ring finger, initial encounter (principal); I10 Essential (primary) hypertension; F17.210 Nicotine dependence, cigarettes, uncomplicated; Z23 Encounter for immunization; W31.2XXA Contact with powered woodworking and forming machines, initial encounter; Y93.L1 Activity, splitting wood
CPT/HCPCS: 90471; 90715